=== PATIENT | male | born 1995 | race African-American/Black ===

== ENCOUNTER 2016-06-19 22:02 | Emergency (ER) | payer OTHER ==
[2016-06-19 22:16] VITALS: BP 117/73; PULSE 72; TEMP 98.1; BMI 25.4
--- NOTE | 2016-06-19 23:15 | PDOC ---
History of Present Illness - History of Present Illness Initial Comments: 06/19/16 23:55 The patient is a 21 year old male with no past medical hx who presents to the ED complaining of diarrhea for three days. The patient reports multiple episodes of diarrhea per day. He reports his diarrhea subsided today. He notes he had a regular bowel movement today and notes bright red blood per rectum when wiping. The patient denies any pain. The patient denies any sick contacts or recent travel. The patient denies any fever, chills, nausea, vomiting <Linh Morlaes - Last Filed: 06/19/16 23:55> <Chitra Osei - Last Filed: 06/20/16 01:54> - General Chief Complaint: Rectal Bleed Stated Complaint: Rectal Bleed Time Seen by Provider: 06/19/16 22:24 Past History <Linh Morales - Last Filed: 06/19/16 23:55> - Psycho/Social/Smoking Cessation Hx Suicidal Ideation: No Smoking History: Never smoked Hx Alcohol Use: No Drug/Substance Use Hx: No Substance Use Type: None <Chitra Osei - Last Filed: 06/20/16 01:54> - Past Medical History Allergies/Adverse Reactions: Allergies Allergy/AdvReac Type Severity Reaction Status Date / Time No Known Allergies Allergy Verified 06/19/16 22:13 Home Medications: Ambulatory Orders Hydrocortisone Acetate [Anusol Hc Suppository -] 25 mg RC DAILY #14 supp.rect Review of Systems - Review of Systems Able to Perform ROS?: Yes Comments:: 06/19/16 23:56 CONSTITUTIONAL: Absent: fever, chills, diaphoresis, generalized weakness, malaise, loss of appetite HEENT: Absent: rhinorrhea, nasal congestion, throat pain, throat swelling, difficulty swallowing, mouth swelling, ear pain, eye pain, visual Changes CARDIOVASCULAR: Absent: chest pain, syncope, palpitations, irregular heart rate, lightheadedness , peripheral edema RESPIRATORY: Absent: cough, shortness of breath, dyspnea with exertion, orthopnea, wheezing, stridor, hemoptysis GASTROINTESTINAL: +Diarrhea. Absent: abdominal pain, abdominal distension, nausea, vomiting, constipation GENITOURINARY: Absent: dysuria, frequency, urgency, hesitancy, hematuria, flank pain, genital pain MUSCULOSKELETAL: Absent: myalgia, arthralgia, joint swelling SKIN: Absent: rash, itching, pallor NEUROLOGIC: Absent: headache, focal weakness or paresthesias, dizziness, unsteady gait, seizure, mental status changes, bladder or bowel incontinence PSYCHIATRIC: Absent: anxiety, depression, suicidal or homicidal ideation, hallucinations. <AndrewLinh - Last Filed: 06/19/16 23:55> *Physical Exam - Vital Signs Last Vital Signs Temp Pulse Resp BP Pulse Ox 98.1 F 72 17 117/73 98 06/19/16 22:13 06/19/16 22:13 06/19/16 22:13 06/19/16 22:13 06/19/16 22:13 - Physical Exam Comments: 06/19/16 23:56 GENERAL: Well developed, well nourished. Awake and alert. No acute distress. HEENT: Normocephalic, atraumatic. PERRLA, EOMI. No conjunctival pallor. Sclera are non- icteric. Moist mucous membranes. Oropharynx is clear. NECK: Supple. Full ROM. No JVD. Carotid pulses 2+ and symmetric, without bruits. No thyromegaly. No lymphadenopathy. CARDIOVASCULAR: Regular rate and rhythm. No murmurs, rubs, or gallops. Distal pulses are 2+ and symmetric. PULMONARY: No evidence of respiratory distress. Lungs clear to auscultation bilaterally. No wheezing, rales or rhonchi. ABDOMINAL: Soft. Non-tender. Non-distended. No rebound or guarding. No organomegaly. Normoactive bowel sounds. MUSCULOSKELETAL Normal range of motion at all joints. No bony deformities or tenderness. No CVA tenderness. EXTREMITIES: No cyanosis. No clubbing. No edema. No calf tenderness. SKIN: Warm and dry. Normal capillary refill. No rashes. No jaundice. NEUROLOGICAL: Alert, awake, appropriate. Cranial nerves 2-12 intact. No deficits to light touch and temperature in face, upper extremities and lower extremities. PSYCHIATRIC: Cooperative. Good eye contact. Appropriate mood and affect. <Linh Morales - Last Filed: 06/19/16 23:55> - Vital Signs Last Vital Signs Temp Pulse Resp BP Pulse Ox 98.1 F 72 17 117/73 98 06/19/16 22:13 06/19/16 22:13 06/19/16 22:13 06/19/16 22:13 06/19/16 22:13 <Chitra Osei - Last Filed: 06/20/16 01:54> ED Treatment Course - LABORATORY CBC & Chemistry Diagram: 06/20/16 00:18 06/20/16 00:18 <Chitra Osei - Last Filed: 06/20/16 01:54> Medical Decision Making - Medical Decision Making 06/20/16 00:34 21yo male has had diarrhea for past few days -no fever,no vomiting,no abdominal pain -today he did not have any loose stools but when he went to have a bowel mvmt only bright red blood was seen -no abd tenderness,no rebound and no guarding pmh- denies psh-denies pt has dry mucus membranes diff diag: viral diarrhea/colitis/hemorrhoids plan-cbc,comp,IVF 06/20/16 01:00 cbc and chemistries are unremarkable,no anemia,normal renal function tests 06/20/16 01:23 pt will followup with Dr Daniel this week -no external hemorrhoids evident-will prescribe anusol suppositories in case there are internal hemorrhoids plan- if symptoms persist ,pt will see GI specialist <Chitra Osei - Last Filed: 06/20/16 01:54> *DC/Admit/Observation/Transfer - Attestations Scribe Attestion: 06/19/16 23:55 Documentation prepared by Linh Morales, acting as medical claims manager for Chitra Osei MD/DO. <Linh Morales - Last Filed: 06/19/16 23:55> <Chitra Osei - Last Filed: 06/20/16 01:54> Diagnosis at time of Disposition: Rectal hemorrhage Diarrhea Qualifiers: Diarrhea type: unspecified type Qualified Code(s): R19.7 - Diarrhea, unspecified - Discharge Dispostion Disposition: HOME Condition at time of disposition: Stable - Prescriptions Prescriptions: Hydrocortisone Acetate [Anusol Hc Suppository -] 25 mg RC DAILY #14 supp.rect - Referrals Referrals: Cindy Daniel [Primary Care Provider] - - Patient Instructions Printed Discharge Instructions: DI for Rectal Bleeding Additional Instructions: please follow up with Dr Daniel
[2016-06-19] MEDS ORDERED: SODIUM CHLORIDE 1,000 ML IV STA (23:18)
[2016-06-20 00:24] LABS: BASOPHIL 0.5 % (0-2.0); EOSINOPHIL 1.3 % (0-4.5); MCHC 33.9 g/dl (32.0-35.9); MEAN CELL VOLUME 91.4 fl (80-96); MEAN PLT VOLUME 7.7 fl (7.5-11.1); NEUTROPHILS 45.9 % (42.8-82.8); PLATELET COUNT 219 K/MM3 (134-434); RDW 12.5 % (11.9-15.9)
[2016-06-20 00:51] LABS: ALBUMIN 3.1 g/dl (3.4-5.0); ANION GAP 8 (8-16); BILIRUBIN,TOTAL 0.3 mg/dL (0.2-1.0); CO2 28 mmol/L (21-32); COCKROFT - GAULT 107.37; CREATININE 0.9 mg/dL (0.7-1.3); GLUCOSE,RANDOM 95 mg/dL (74-106); SGOT/AST 16 U/L (15-37); SGPT/ALT 18 U/L (12-78); TOT PROT 6.3 g/dl (6.4-8.2)
[2016-06-20 00:52] LABS: ALK PHOS 49 U/L (45-117)
== END 2016-06-20 01:57 | disposition home or self-care (01) ==
LOC: JER 22:02
PROC: 3E0337Z Introduction of Electrolytic and Water Balance Substance into Peripheral Vein, Percutaneous Approach (ICD-10-PCS; principal; 2016-06-19)
DX: K62.5 Hemorrhage of anus and rectum (principal); R19.7 Diarrhea, unspecified
CPT/HCPCS: 36415; 80053; 85025; 96360; 99282-25

== ENCOUNTER 2016-06-22 16:38 | Emergency (ER) | payer OTHER ==
[2016-06-22 16:44] VITALS: BP 120/65; PULSE 72; TEMP 98; BMI 21.6
[2016-06-22] MEDS ORDERED: SODIUM CHLORIDE 1,000 ML IV STA (17:13)
--- NOTE | 2016-06-22 17:15 | PDOC ---
[id number]: DIARRHEA/ABD PAIN Time Seen by Provider: 06/22/16 16:58 History Source: Patient - History of Present Illness Initial Comments: 06/22/16 17:15 21 year old male with diarrhea started 06/17/2016 after drinking Kari Iced tea. seen in ED on 06/19/16 for similar complaints with rectal irritation. patient reports episodes of diarrhea has improved from 10 episodes daily , continues with diarrhea up to 6 times daily now. patient denies fever, abdominal pain, NV. no pmhx Past History - Past Medical History Allergies/Adverse Reactions: Allergies Allergy/AdvReac Type Severity Reaction Status Date / Time No Known Allergies Allergy Verified 06/22/16 16:44 Home Medications: Ambulatory Orders Hydrocortisone Acetate [Anusol Hc Suppository -] 25 mg RC DAILY #14 supp.rect Other medical history: PATIENT DENIES MEDICAL HX - Psycho/Social/Smoking Cessation Hx Suicidal Ideation: No Smoking History: Never smoked Hx Alcohol Use: No Drug/Substance Use Hx: No Substance Use Type: None Review of Systems - Review of Systems Able to Perform ROS?: Yes Is the patient limited Pashto proficient: No ABD/GI: Yes: Diarrhea *Physical Exam - Vital Signs Last Vital Signs Temp Pulse Resp BP Pulse Ox 98.0 F 72 18 120/65 96 06/22/16 16:41 06/22/16 16:41 06/22/16 16:41 06/22/16 16:41 06/22/16 16:41 - Physical Exam General Appearance: Yes: Appropriately Dressed Respiratory/Chest: positive: Lungs Clear, Normal Breath Sounds Cardiovascular: positive: Regular Rhythm, Regular Rate. negative: Tachycardia Gastrointestinal/Abdominal: positive: Normal Bowel Sounds, Soft. negative: Tender, Increased Bowel Sounds, Rebound, Tenderness Rectal Exam: positive: hemorrhoids (5 o' clock location external hemorrhoids) Extremity: positive: Normal Capillary Refill, Normal Inspection, Normal Range of Motion Integumentary: positive: Normal Color, Dry, Warm Neurologic: positive: Fully Oriented, Alert, Normal Mood/Affect ED Treatment Course - LABORATORY CBC & Chemistry Diagram: 06/22/16 17:40 06/22/16 17:40 Progress Note - Progress Note Progress Note: A: gastroenteritis P: cbc cmp IVF *DC/Admit/Observation/Transfer Diagnosis at time of Disposition: Diarrhea Qualifiers: Diarrhea type: unspecified type Qualified Code(s): R19.7 - Diarrhea, unspecified - Discharge Dispostion Disposition: HOME Condition at time of disposition: Good - Referrals Referrals: Cindy Daniel [Primary Care Provider] - Royce Green MD [Staff Physician] - - Patient Instructions Printed Discharge Instructions: Gastroenteritis Diet Additional Instructions: start a BRAT (bananas, rice, apples and toast) diet drink plenty of fluids. follow up with group fitness manager if diarrhea is not resolving
[2016-06-22 17:48] LABS: BASOPHIL 0.7 % (0-2.0); EOSINOPHIL 2.1 % (0-4.5); MCH 31.3 pg (25.7-33.7); MEAN CELL VOLUME 92.2 fl (80-96); MEAN PLT VOLUME 7.6 fl (7.5-11.1); NEUTROPHILS 60.3 % (42.8-82.8); PLATELET COUNT 320 K/MM3 (134-434); RDW 12.8 % (11.9-15.9); WHITE BLOOD COUNT 6.3 K/mm3 (4.0-10.0)
[2016-06-22 18:15] LABS: ALBUMIN 3.4 g/dl (3.4-5.0); ANION GAP 7 (8-16); CALCIUM 8.7 mg/dL (8.5-10.1); CO2 31 mmol/L (21-32); COCKROFT - GAULT 107.37; CREATININE 0.9 mg/dL (0.7-1.3); GLUCOSE,RANDOM 101 mg/dL (74-106); SGOT/AST 7 U/L (15-37); SGPT/ALT 15 U/L (12-78)
[2016-06-22 18:17] LABS: ALK PHOS 54 U/L (45-117); BILIRUBIN,TOTAL 0.5 mg/dL (0.2-1.0); TOT PROT 7.1 g/dl (6.4-8.2)
== END 2016-06-22 19:19 | disposition home or self-care (01) ==
LOC: JERFT 16:38
PROC: 3E0337Z Introduction of Electrolytic and Water Balance Substance into Peripheral Vein, Percutaneous Approach (ICD-10-PCS; principal; 2016-06-22)
DX: K52.9 Noninfective gastroenteritis and colitis, unspecified (principal)
CPT/HCPCS: 36415; 80053; 85025; 96360; 99281-25

== ENCOUNTER → 2018-07-03 | Emergency (ER) | payer OTHER ==
[2018-07-03 09:39] VITALS: BP 115/60; PULSE 77; TEMP 98; BMI 21.7
== END | disposition left against medical advice (07) ==
LOC: JERFT 09:23
DX: Z53.21 Procedure and treatment not carried out due to patient leaving prior to being seen by health care provider (principal)
CPT/HCPCS: 99281-25